=== PATIENT | male | born 1990 | race Caucasian/White ===

== ENCOUNTER → 2017-11-27 12:20 | Emergency (ER) | payer SELFPAY ==
[~2017-11-27 12:20] MED LIST: Haloperidol INJ IV/IM* 5 MG/ML AMP ONE; Haloperidol TAB* 5 MG PO ONE; LORazepam INJ* 2 MG/ML 1 ML VIAL ONE; LORazepam TAB(*) 1 MG PO ONE; diPHENhydraMINE IV* 50 MG/ML 1 ml VIAL (BENADRYL) ONE
--- NOTE | 2017-11-27 12:40 | UC ---
Psychiatric Complaint HPI - History Of Current Complaint Stated Complaint: 941 Time Seen by Provider: 11/27/17 12:25 PMH/Surg Hx/FS Hx/Imm Hx - Social History Alcohol Use: None Substance Use Type: None Smoking Status (MU): Heavy Every Day Tobacco Smoker Physical Exam Triage Information Reviewed: Yes Vital Signs Reviewed: Yes Discharge - Discharge Plan Referrals: No Primary Care Phys,NOPCP [Primary Care Provider] - - Attestation Statements Document Initiated by Scribe: Yes Documenting Scribe: Debbie Noble Provider For Whom Scribe is Documenting (Include Credential): Miguel Ordoñez MD Scribe Attestation: IDebbie, scribed for Miguel Ordoñez MD on 11/27/17 at 1229. Scribe Documentation Reviewed: Yes Provider Attestation: The documentation as recorded by the Debbie mojica accurately reflects the service I personally performed and the decisions made by me, Miguel Ordoñez MD
[2017-11-27 13:13] LABS: ABS Basophils 0.1 10^3/ul (0-0.2); ABS Eosinophils 0.1 10^3/ul (0-0.6); ABS Lymphocytes 2.9 10^3/ul (1.0-4.8); ABS Monocytes 0.7 10^3/ul (0-0.8); ABS Neutrophils 5.3 10^3/ul (1.5-7.7); ABS Nucleated RBC 0 10^3/ul; Eosinophil % 1.1 % (0-6); Hematocrit 45 % (42-52); Hemoglobin 15.1 g/dl (14.0-18.0); Lymphocyte % 31.4 % (25-47); Mean Corpuscular HGB Conc 34 g/dl (31-36); Mean Corpuscular Hemoglobin 31 pg (27-31); Mean Corpuscular Volume 91 fL (80-94); Mean Platelet Volume 7.3 um3 (7.4-10.4); Nucleated Red Blood Cells % 0.1; Platelet Count 311 10^3/ul (150-450); Red Blood Count 4.91 10^6/ul (4.00-5.40); Red Cell Distribution Width 14 % (10.5-15); White Blood Count 9.1 10^3/ul (3.5-10.8)
[2017-11-27 13:29] LABS: EGFR Non-African American 97.3 (>60)
--- NOTE | 2017-11-27 14:11 | ED ---
Psychiatric Complaint - HPI Summary HPI Summary: The patient is a 27 y/o M [employer] presenting to [facility] with a chief complaint of EtOH intoxication, possible cocaine and marijuana use, and potential HI. Per police report, the pt had been running around the streets in front of cars and screaming. There were multiple reports called in for him, but he was unable to be caught until he was home and the pt's roommate called after he was throwing things around the house and stated he wanted to hurt his roommate. When police presented themselves in the pt's home, he ran out of the house. The pt had gotten to his neighbor's house, where he was once again throwing things, although he was compliant when handcuffed. Pt states that when he woke up this morning, his cousin/roommate came into his room and told him that he had to gather his things and leave the house. The pt went to work as he was supposed to, but he was assigned a job he did not want to do, causing him to become more upset. Because of this, he decided to pour tequila into his coffee, allowing him to become EtOH intoxicated. He also reports taking marijuana and cocaine but did not make it clear if that was today. He states that he does not want to hurt himself or anyone else. He also reports scars all over his body. - History Of Current Complaint Chief Complaint: EDMentalHealth Time Seen by Provider: 11/27/17 12:25 Hx Obtained From: Patient Onset/Duration: Sudden Onset, Lasting Hours, Still Present Timing: Hours Severity Initially: Severe Severity Currently: Severe Character: Manic Aggravating Factor(s): Alcohol Use, Drug Use - cocaine, marijuana Alleviating Factor(s): Nothing Associated Signs And Symptoms: Positive: Hostile Has Suicidal: Denies: Thoughts Has Homicidal: Denies: Thoughts, With A Plan - but per police report, pt was having HI Recent Stressor(s): told he had to leave his house Ingestion History: Type/Name Of Drug - cocaine, marijuana - Allergies/Home Medications Allergies/Adverse Reactions: Allergies Allergy/AdvReac Type Severity Reaction Status Date / Time No Known Allergies Allergy Verified 11/27/17 13:08 Home Medications: Home Medications Unobtainable 11/27/17 [History Confirmed 08/22/18] PMH/Surg Hx/FS Hx/Imm Hx Opthamlomology History: Denies: Hx Legally Blind EENT History: Denies: Hx Deafness - Immunization History Immunizations Up to Date: Unable to Obtain/Confirm Infectious Disease History: Unable to Obtain/Confirm Infectious Disease History: Denies: Traveled Outside the [place] in Last 30 Days - Family History Known Family History: Negative: Hypertension - Social History Alcohol Use: None Substance Use Type: Reports: Cocaine, Marijuana, Other Substance Use Comment - Amount & Last Used: (+)Alcohol Smoking Status (MU): Heavy Every Day Tobacco Smoker Review of Systems Positive: Other - scars all over body Neurological: Other - EtOH intoxication Positive: Other - HI, marijuana and cocaine use All Other Systems Reviewed And Are Negative: Yes Physical Exam - Summary Physical Exam Summary: Constitutional: Well-developed, Well-nourished, Alert. (-) Distressed Skin: Warm, Dry HENT: Normocephalic; Atraumatic Eyes: Conjunctiva normal Neck: Musculoskeletal ROM normal neck. (-) JVD, (-) Stridor, (-) Tracheal deviation Cardio: Rhythm regular, rate normal, Heart sounds normal; Intact distal pulses; The pedal pulses are 2+ and symmetric. Radial pulses are 2+ and symmetric. (-) Murmur Pulmonary/Chest wall: Effort normal. (-) Respiratory distress, (-) Wheezes, (-) Rales Abd: Soft, (-) epigastric tenderness, (-) Distension, (-) Guarding, (-) Rebound Musculoskeletal: (-) Edema Lymph: (-) Cervical adenopathy Neuro: Alert, Oriented x3 Psych: Mood and affect Normal Triage Information Reviewed: Yes Vital Signs On Initial Exam: Initial Vitals Pulse Resp BP Pulse Ox 79 16 101/62 93 11/27/17 13:07 11/27/17 13:07 11/27/17 13:07 11/27/17 13:07 Vital Signs Reviewed: Yes Diagnostics - Vital Signs Vital Signs Temp Pulse Resp BP Pulse Ox 11/27/17 13:56 82 98/81 98 11/27/17 13:55 87 108/83 97 11/27/17 13:42 97 121/68 98 11/27/17 13:29 82 93 11/27/17 13:28 83 96/57 92 11/27/17 13:09 98 F 83 18 101/62 93 11/27/17 13:07 79 16 62 93 - Laboratory Lab Results: Lab Results 11/27/17 11/27/17 Range/Units 12:51 12:51 WBC 9.1 (3.5-10.8) 10^3/ul RBC 4.91 (4.00-5.40) 10^6/ul Hgb 15.1 (14.0-18.0) g/dl Hct 45 (42-52) % MCV 91 (80-94) fL MCH 31 (27-31) pg MCHC 34 (31-36) g/dl RDW 14 (10.5-15) % Plt Count 311 (150-450) 10^3/ul MPV 7.3 L (7.4-10.4) um3 Neut % (Auto) 58.6 (38-83) % Lymph % (Auto) 31.4 (25-47) % Geary % (Auto) 8.2 H (0-7) % Eos % (Auto) 1.1 (0-6) % Baso % (Auto) 0.7 (0-2) % Absolute Neuts (auto) 5.3 (1.5-7.7) 10^3/ul Absolute Lymphs (auto) 2.9 (1.0-4.8) 10^3/ul Absolute Monos (auto) 0.7 (0-0.8) 10^3/ul Absolute Eos (auto) 0.1 (0-0.6) 10^3/ul Absolute Basos (auto) 0.1 (0-0.2) 10^3/ul Absolute Nucleated RBC 0 10^3/ul Nucleated RBC % 0.1 Sodium 142 (135-145) mmol/L Potassium 3.7 (3.5-5.0) mmol/L Chloride 109 (101-111) mmol/L Carbon Dioxide 24 (22-32) mmol/L Anion Gap 9 (2-11) mmol/L BUN 10 (6-24) mg/dL Creatinine 0.92 (0.67-1.17) mg/dL Est GFR ( Amer) 117.7 (>60) Est GFR (Non-Af Amer) 97.3 (>60) BUN/Creatinine Ratio 10.9 (8-20) Glucose 95 (70-100) mg/dL Calcium 9.6 (8.6-10.3) mg/dL Total Bilirubin 0.50 (0.2-1.0) mg/dL AST 35 (13-39) U/L ALT 23 (7-52) U/L Alkaline Phosphatase 65 (34-104) U/L Total Protein 7.0 (6.4-8.9) g/dL Albumin 4.4 (3.2-5.2) g/dL Globulin 2.6 (2-4) g/dL Albumin/Globulin Ratio 1.7 (1-3) TSH Pending Salicylates < 2.50 (<30) mg/dL Acetaminophen < 15 mcg/mL Serum Alcohol 292 H (<10) mg/dL Result Diagrams: 11/27/17 12:51 11/27/17 12:51 Lab Statement: Any lab studies that have been ordered have been reviewed, and results considered in the medical decision making process. Re-Evaluation - Re-Evaluation First Eval Re-Evaluation Time: 13:00 Change: Unchanged Comment: Patient is now calm and has responded well to medication. I asked that the restraints be removed at 13:15. Second Eval Re-Evaluation Time: 13:30 Change: Unchanged Comment: Coming time to remove restraints, the patient is not cooperative and appears to be agitated. The restraints will be continued. Third Eval Re-Evaluation Time: 17:30 Change: Improved Comment: Patient seems comfortable. The decision has been made to remove the restraints. Fourth Eval Re-Evaluation Time: 18:05 Change: Unchanged Comment: Patient is sleepy and unresponsive. Course/Dx - Course Course Of Treatment: The patient is a 27 y/o M [employer] presenting to [facility] with a chief complaint of EtOH intoxication, possible cocaine and marijuana use, and potential HI. Per police report, the pt had been running around the streets in front of cars and screaming. There were multiple reports called in for him, but he was unable to be caught until he was home and the pt' s roommate called after he was throwing things around the house and stated he wanted to hurt his roommate. When police presented themselves in the pt's home, he ran out of the house. The pt had gotten to his neighbor's house, where he was once again throwing things, although he was compliant when handcuffed. Pt states that when he woke up this morning, his cousin/roommate came into his room and told him that he had to gather his things and leave the house. The pt went to work as he was supposed to, but he was assigned a job he did not want to do, causing him to become more upset. Because of this, he decided to pour tequila into his coffee, allowing him to become EtOH intoxicated. He also reports taking marijuana and cocaine but did not make it clear if that was today. He states that he does not want to hurt himself or anyone else. He also reports scars all over his body. Upon arrival, pt is obviously upset and somewhat hostile with swearing. In the ED course, he was administered Ativan and Haldol. Pt was put in ankle and wrist restraints at 1235. Restraints were to be taken off at 1315 but pt was not cooperative. Restraints removed officially at 17:30. Patient will be a sign-out to Dr. Rojas at shift change pending disposition after MHU. Discharge - Sign-Out/Discharge Documenting (check all that apply): Sign-Out Patient - Patient will be a sign- out to Dr. Rojas at shift change pending disposition after MHU. Signing out patient TO: Mathew Rojas - Discharge Plan Referrals: No Primary Care Phys,NOPCP [Primary Care Provider] - - Attestation Statements Document Initiated by Kimberibe: Yes Documenting Scribe: Debbie Noble Provider For Whom Mirella is Documenting (Include Credential): Miguel Ordoñez MD Scribe Attestation: I, Debbie Noble, scribed for Miguel Ordoñez MD on 11/27/17 at 1912. Scribe Documentation Reviewed: Yes Provider Attestation: The documentation as recorded by the Debbie mojica accurately reflects the service I personally performed and the decisions made by me, Miguel Ordoñez MD
[2017-11-28 05:49] VITALS: BP 100/68
--- NOTE | 2017-12-01 02:28 | ED ---
Progress - Consult/PCP Time Called: 20:00 Re-Evaluation - Re-Evaluation First Eval Re-Evaluation Time: 13:00 Change: Unchanged Comment: Patient is now calm and has responded well to medication. I asked that the restraints be removed at 13:15. Second Eval Re-Evaluation Time: 13:30 Change: Unchanged Comment: Coming time to remove restraints, the patient is not cooperative and appears to be agitated. The restraints will be continued. Third Eval Re-Evaluation Time: 17:30 Change: Improved Comment: Patient seems comfortable. The decision has been made to remove the restraints. Fourth Eval Re-Evaluation Time: 18:05 Change: Unchanged Comment: Patient is sleepy and unresponsive. Course/Dx - Course Course Of Treatment: The patient is a 27 y/o M [employer] [facility] [employer] presenting to [facility] with a chief complaint of EtOH intoxication, possible cocaine and marijuana use, and potential HI. Per police report, the pt had been running around the streets in front of cars and screaming. There were multiple reports called in for him, but he was unable to be caught until he was home and the pt' s roommate called after he was throwing things around the house and stated he wanted to hurt his roommate. When police presented themselves in the pt's home, he ran out of the house. The pt had gotten to his neighbor's house, where he was once again throwing things, although he was compliant when handcuffed. Pt states that when he woke up this morning, his cousin/roommate came into his room and told him that he had to gather his things and leave the house. The pt went to work as he was supposed to, but he was assigned a job he did not want to do, causing him to become more upset. Because of this, he decided to pour tequila into his coffee, allowing him to become EtOH intoxicated. He also reports taking marijuana and cocaine but did not make it clear if that was today. He states that he does not want to hurt himself or anyone else. He also reports scars all over his body. Upon arrival, pt is obviously upset and somewhat hostile with swearing. In the ED course, he was administered Ativan and Haldol. Pt was put in ankle and wrist restraints at 1235. Restraints were to be taken off at 1315 but pt was not cooperative. Restraints removed officially at 17:30. Patient will be a sign-out to Dr. Rojas at shift change pending disposition after MHU. - Diagnoses Provider Diagnoses: Polysubstance abuse Discharge - Sign-Out/Discharge Documenting (check all that apply): Patient Departure - Discharge Plan Condition: Good Disposition: HOME Referrals: No Primary Care Phys,NOPCP [Primary Care Provider] - - Billing Disposition and Condition Condition: GOOD Disposition: Home - Attestation Statements Document Initiated by Scribe: No
== END | disposition home or self-care (01) ==
LOC: ED 12:20
DX: F19.129 Other psychoactive substance abuse with intoxication, unspecified (principal); F17.200 Nicotine dependence, unspecified, uncomplicated
CPT/HCPCS: 36415; 80053; 80320; 80329; 84443; 85025; 99284; G0480; J1200; J1630; J2060

== ENCOUNTER 2018-02-06 20:17 | Emergency (ER) | payer SELFPAY ==
[2018-02-06] MEDS ORDERED: Nicotine Inhaler* 10 MG AMP INH PRN (20:52)
[2018-02-06 21:16] LABS: ABS Basophils 0.1 10^3/ul (0-0.2); ABS Eosinophils 0.1 10^3/ul (0-0.6); ABS Lymphocytes 3.9 10^3/ul (1.0-4.8); ABS Monocytes 1.3 10^3/ul (0-0.8); ABS Neutrophils 4.9 10^3/ul (1.5-7.7); ABS Nucleated RBC 0 10^3/ul; Eosinophil % 0.9 % (0-6); Hematocrit 42 % (42-52); Hemoglobin 14.3 g/dl (14.0-18.0); Lymphocyte % 37.9 % (25-47); Mean Corpuscular HGB Conc 34 g/dl (31-36); Mean Corpuscular Hemoglobin 31 pg (27-31); Mean Corpuscular Volume 92 fL (80-94); Mean Platelet Volume 7.5 um3 (7.4-10.4); Nucleated Red Blood Cells % 0; Platelet Count 330 10^3/ul (150-450); Red Blood Count 4.63 10^6/ul (4.00-5.40); Red Cell Distribution Width 14 % (10.5-15); White Blood Count 10.3 10^3/ul (3.5-10.8)
[2018-02-06 21:24] LABS: Urine Appearance Clear; Urine Blood Negative (Negative); Urine Color Straw; Urine Ketones Negative (Negative); Urine Protein Negative (Negative); Urine Specific Gravity 1.006 (1.010-1.030); Urine Urobilinogen Negative (Negative)
[2018-02-06 21:32] LABS: EGFR Non-African American 96.1 (>60)
--- NOTE | 2018-02-06 21:45 | ED ---
Psychiatric Complaint - HPI Summary HPI Summary: Level 5 Caveat: Unable to obtain complete HPI due to AMS secondary to EtOH use The pt is a 27 y/o male BIBA to [facility] c/o SI since today evening. The pt got into an argument with his cousin who called the police and ambulance after the pt broke glass and threatened to kill himself if not given crack. The pt reports consumption of 6-10 alcoholic drinks, smoking marijuana and crack today. He lives with his cousin in [place] and has a brother and sister in the area. He notes palpitations but denies SI/HI at bedside. Pt insists on going home. - History Of Current Complaint Chief Complaint: EDMentalHealth Time Seen by Provider: 02/06/18 20:53 Hx Obtained From: Patient Hx From Patient Unobtainable Due To: Altered Mental Status Onset/Duration: Sudden Onset, Still Present Timing: Constant Character: Manic Aggravating Factor(s): Alcohol Use, Drug Use Alleviating Factor(s): Nothing Has Suicidal: Reports: Thoughts - Denies at bedside. Denies: With A Plan Has Homicidal: Denies: Thoughts, With A Plan Ingestion History: Type/Name Of Drug - EtOH (6-10 botttles, "crack" and marijuana - Allergies/Home Medications Allergies/Adverse Reactions: Allergies Allergy/AdvReac Type Severity Reaction Status Date / Time No Known Allergies Allergy Verified 11/27/17 13:08 PMH/Surg Hx/FS Hx/Imm Hx Previously Healthy: No - Level 5 Caveat: Unable to obtain complete Mhx due to AMS secondary to EtO Endocrine/Hematology History: Denies: Hx Diabetes Cardiovascular History: Denies: Hx Hypertension Respiratory History: Denies: Hx Asthma Sensory History: Denies: Hx Legally Blind, Hx Deafness Opthamlomology History: Denies: Hx Legally Blind Psychiatric History: Reports: Hx of Violent Episodes Against Others Denies: Hx Eating Disorder - Cancer History Cancer Type, Location and Year: None reported Infectious Disease History: No Infectious Disease History: Denies: Traveled Outside the [place] in Last 30 Days - Family History Known Family History: Negative: Hypertension - Social History Occupation: Employed Full-time Lives: With Family - Cousin Alcohol Use: Daily Hx Substance Use: Yes Substance Use Type: Reports: Cocaine, Marijuana Substance Use Comment - Amount & Last Used: marijuana every day and crack every weekend Smoking Status (MU): Heavy Every Day Tobacco Smoker Review of Systems - ROS Summary Review of Systems Summary: Level 5 Caveat: Unable to obtain complete ROS due to AMS secondary to EtOH use Positive: Palpitations Positive: Other - Negative: SI/HI All Other Systems Reviewed And Are Negative: No Physical Exam - Summary Physical Exam Summary: Level 5 Caveat: Unable to obtain complete PE due to AMS secondary to EtOH use GENERAL: Patient is a well developed and nourished M who is lying comfortable in the stretcher. Patient is not in any acute respiratory distress. HEAD AND FACE: Normocephalic EYES: PERRLA, EOMI x 2. EARS: Hearing grossly intact. MOUTH: Oropharynx within normal limits. NECK: Supple, trachea is midline, no adenopathy, no JVD, no carotid bruit. CHEST: Symmetric, no tenderness at palpation LUNGS: Clear to auscultation bilaterally. No wheezing or crackles. CVS: Regular rate and rhythm, S1 and S2 present, no murmurs or gallops appreciated. ABDOMEN: Soft, non-tender. Bowel sounds are normal. No abdominal abnormal pulsations. EXTREMITIES: Full ROM in all major joints, no edema, no cyanosis or clubbing. NEURO: Alert and oriented x 3. No acute neurological deficits. Speech is normal and follows commands. SKIN: Dry and warm PSYCH: Patient appears manic with linear thought and pressured speech. Triage Information Reviewed: Yes Vital Signs On Initial Exam: Initial Vitals Temp Pulse Resp BP Pulse Ox 98.0 F 71 16 109/78 100 02/06/18 20:44 02/06/18 20:44 02/06/18 20:44 02/06/18 20:44 02/06/18 20:44 Vital Signs Reviewed: Yes Completion Of Physical Exam Limited Due To: Altered Mental Status Diagnostics - Vital Signs Vital Signs Temp Pulse Resp BP Pulse Ox 02/06/18 20:44 98.0 F 71 16 109/78 100 - Laboratory Lab Results: Lab Results 02/06/18 02/06/18 02/06/18 Range/Units 21:04 21:04 21:09 WBC 10.3 (3.5-10.8) 10^3/ul RBC 4.63 (4.00-5.40) 10^6/ul Hgb 14.3 (14.0-18.0) g/dl Hct 42 (42-52) % MCV 92 (80-94) fL MCH 31 (27-31) pg MCHC 34 (31-36) g/dl RDW 14 (10.5-15) % Plt Count 330 (150-450) 10^3/ul MPV 7.5 (7.4-10.4) um3 Neut % (Auto) 47.6 (38-83) % Lymph % (Auto) 37.9 (25-47) % Craven % (Auto) 13.0 H (0-7) % Eos % (Auto) 0.9 (0-6) % Baso % (Auto) 0.6 (0-2) % Absolute Neuts (auto) 4.9 (1.5-7.7) 10^3/ul Absolute Lymphs (auto) 3.9 (1.0-4.8) 10^3/ul Absolute Monos (auto) 1.3 H (0-0.8) 10^3/ul Absolute Eos (auto) 0.1 (0-0.6) 10^3/ul Absolute Basos (auto) 0.1 (0-0.2) 10^3/ul Absolute Nucleated RBC 0 10^3/ul Nucleated RBC % 0 Sodium (135-145) mmol/L Potassium (3.5-5.0) mmol/L Chloride (101-111) mmol/L Carbon Dioxide (22-32) mmol/L Anion Gap (2-11) mmol/L BUN (6-24) mg/dL Creatinine (0.67-1.17) mg/dL Est GFR ( Amer) (>60) Est GFR (Non-Af Amer) (>60) BUN/Creatinine Ratio (8-20) Glucose (70-100) mg/dL Calcium (8.6-10.3) mg/dL Total Bilirubin (0.2-1.0) mg/dL AST (13-39) U/L ALT (7-52) U/L Alkaline Phosphatase (34-104) U/L Total Protein (6.4-8.9) g/dL Albumin (3.2-5.2) g/dL Globulin (2-4) g/dL Albumin/Globulin Ratio (1-3) TSH Urine Color Straw Urine Appearance Clear Urine pH 6.0 (5-9) Ur Specific [place] 1.006 L (1.010-1.030) Urine Protein Negative (Negative) Urine Ketones Negative (Negative) Urine Blood Negative (Negative) Urine Nitrate Negative (Negative) Urine Bilirubin Negative (Negative) Urine Urobilinogen Negative (Negative) Ur Leukocyte Esterase Negative (Negative) Urine Glucose Negative (Negative) Salicylates (<30) mg/dL Urine Opiates Screen None detected (None Detect) Acetaminophen mcg/mL Ur Barbiturates Screen None detected (None Detect) Ur Phencyclidine Scrn None detected (None Detect) Ur Amphetamines Screen None detected (None Detect) U Benzodiazepines Scrn None detected (None Detect) Urine Cocaine Screen Presumptive positive A (None Detect) U Cannabinoids Screen Presumptive positive A (None Detect) Serum Alcohol (<10) mg/dL 02/06/18 Range/Units 21:09 WBC (3.5-10.8) 10^3/ul RBC (4.00-5.40) 10^6/ul Hgb (14.0-18.0) g/dl Hct (42-52) % MCV (80-94) fL MCH (27-31) pg MCHC (31-36) g/dl RDW (10.5-15) % Plt Count (150-450) 10^3/ul MPV (7.4-10.4) um3 Neut % (Auto) (38-83) % Lymph % (Auto) (25-47) % Craven % (Auto) (0-7) % Eos % (Auto) (0-6) % Baso % (Auto) (0-2) % Absolute Neuts (auto) (1.5-7.7) 10^3/ul Absolute Lymphs (auto) (1.0-4.8) 10^3/ul Absolute Monos (auto) (0-0.8) 10^3/ul Absolute Eos (auto) (0-0.6) 10^3/ul Absolute Basos (auto) (0-0.2) 10^3/ul Absolute Nucleated RBC 10^3/ul Nucleated RBC % Sodium 141 (135-145) mmol/L Potassium 3.8 (3.5-5.0) mmol/L Chloride 111 (101-111) mmol/L Carbon Dioxide 23 (22-32) mmol/L Anion Gap 7 (2-11) mmol/L BUN 14 (6-24) mg/dL Creatinine 0.93 (0.67-1.17) mg/dL Est GFR ( Amer) 116.2 (>60) Est GFR (Non-Af Amer) 96.1 (>60) BUN/Creatinine Ratio 15.1 (8-20) Glucose 96 (70-100) mg/dL Calcium 9.3 (8.6-10.3) mg/dL Total Bilirubin 0.40 (0.2-1.0) mg/dL AST 26 (13-39) U/L ALT 15 (7-52) U/L Alkaline Phosphatase 65 (34-104) U/L Total Protein 6.9 (6.4-8.9) g/dL Albumin 4.3 (3.2-5.2) g/dL Globulin 2.6 (2-4) g/dL Albumin/Globulin Ratio 1.7 (1-3) TSH Pending Urine Color Urine Appearance Urine pH (5-9) Ur Specific [place] (1.010-1.030) Urine Protein (Negative) Urine Ketones (Negative) Urine Blood (Negative) Urine Nitrate (Negative) Urine Bilirubin (Negative) Urine Urobilinogen (Negative) Ur Leukocyte Esterase (Negative) Urine Glucose (Negative) Salicylates < 2.50 (<30) mg/dL Urine Opiates Screen (None Detect) Acetaminophen < 15 mcg/mL Ur Barbiturates Screen (None Detect) Ur Phencyclidine Scrn (None Detect) Ur Amphetamines Screen (None Detect) U Benzodiazepines Scrn (None Detect) Urine Cocaine Screen (None Detect) U Cannabinoids Screen (None Detect) Serum Alcohol 206 H (<10) mg/dL Result Diagrams: 02/06/18 21:09 02/06/18 21:09 Lab Statement: Any lab studies that have been ordered have been reviewed, and results considered in the medical decision making process. Course/Dx - Course Course Of Treatment: A 27 year-old M presents to the ED with a CC of SI since today evening. The pt got into an argument with his cousin who called the police and ambulance after the pt broke glass and threatened to kill himself if not given crack. The pt reports consumption of 6-10 alcoholic drinks, smoking marijuana and crack today. He notes palpitations but denies SI/HI. Pt insists on going home. A physical exam revealed a manic affect with linear thought and pressured speech. In the ED course, pt was given Nicotine 10 mg INH which improved the symptoms. I discussed the care of the pt with Dr. Triana who agreed to see the pt in the ED in the morning. Patient will be signed out to Dr. Carmelita MD at the change of shift with a preliminary Dx of substance use disorder. - Differential Dx/Clinical Impression Provider Diagnosis: Substance use disorder - Physician Notifications Discussed Care Of Patient With: Tayo Triana - Psychiatrist Time Discussed With Above Provider: 04:45 Instructed by Provider To: MD Will See In ED Discharge - Sign-Out/Discharge Documenting (check all that apply): Sign-Out Patient Signing out patient TO: Biju Mae - 07:00 hrs - Discharge Plan Condition: Stable Referrals: No Primary Care Phys,NOPCP [Primary Care Provider] - - Billing Disposition and Condition Condition: STABLE - Attestation Statements Document Initiated by Scribe: Yes Documenting Scribe: Cindy Rosas Provider For Whom Scribe is Documenting (Include Credential): Dr. Leah Mora MD Scribe Attestation: ICindy, scribed for Dr. Leah Mora MD on 02/07/18 at 0552. Scribe Documentation Reviewed: Yes Provider Attestation: The documentation as recorded by the scribCindy sidhu accurately reflects the service I personally performed and the decisions made by me, Dr. Leah Mora MD
--- NOTE | 2018-02-07 07:05 | ED ---
Progress - Progress Note Progress Note: Patient is received as a sign out from Dr. Mora to Dr. Mae at 0700 shift change pending evaluation by psychiatrist. 0803 - Dr. Triana has reviewed the patient's case. Dr. Triana states patient can be discharged to home with diagnosis of substance induced mood disorder. Dr. Mae is agreeable with this plan. Course/Dx - Diagnoses Provider Diagnoses: Substance induced mood disorder - Provider Notifications Discussed Care Of Patient With: Tayo Triana Time Discussed With Above Provider: 08:03 Instructed by Provider To: Other - 0803 - Dr. Triana has reviewed the patient's case. Dr. Triana states patient can be discharged to home with diagnosis of substance induced mood disorder. Dr. Mae is agreeable with this plan. Discharge - Sign-Out/Discharge Documenting (check all that apply): Patient Departure - discharge - Discharge Plan Condition: Stable Disposition: HOME Referrals: No Primary Care Phys,NOPCP [Primary Care Provider] - - Attestation Statements Document Initiated by Scribe: Yes Documenting Scribe: Remy Myers Provider For Whom Scribe is Documenting (Include Credential): Biju Mae MD Scribe Attestation: Remy Franklin, scribed for Biju Mae MD on 02/07/18 at 0812.
[2018-02-07 08:32] VITALS: BP 121/81
[2018-02-07] MEDS ORDERED: Mouth Piece, Nicotine* 1 EACH CARTRIDGE INH ONE (20:52)
== END 2018-02-07 08:45 | disposition home or self-care (01) ==
LOC: ED 20:17
DX: F19.90 Other psychoactive substance use, unspecified, uncomplicated (principal); F17.200 Nicotine dependence, unspecified, uncomplicated
CPT/HCPCS: 36415; 80053; 80307; 80320; 80329; 81003; 84443; 85025; 99285; A9270-GY; G0480